=== PATIENT | male | born 1990 | race Caucasian/White ===

== ENCOUNTER 2016-12-08 16:01 | Emergency (ER) | payer MEDICAID ==
[~2016-12-08] VITALS: Ht 175.3 cm; Wt 93.0 kg
[2016-12-08 18:00] LABS: Basophils # (auto) 0 uL; Basophils % (auto) 0.3 % (0.0-2.0); Eosinophils # (auto) 0.2 uL; Eosinophils % (auto) 2.6 % (0.0-7.0); Hemoglobin 16.8 g/dL (13.5-17.5); Lymphocytes # (auto) 2.8 uL; Lymphocytes % (auto) 39.3 % (10.0-50.0); Mean Corpuscular Hgb Conc. 34.4 g/dL (32.0-36.0); Mean Corpuscular Volume 90.2 fL (80.0-100.0); Mean Platelet Volume 8.2 fL (7.4-10.4); Monocytes # (auto) 0.6 uL; Monocytes % (auto) 8.5 % (0.0-12.0); Neutrophils # (auto) 3.5 uL; Neutrophils % (auto) 49.3 % (37.0-80.0); Platelet Count (auto) 287 10^3/uL (140-450); Red Cell Distribution Width 12.5 % (11.6-16.0)
[2016-12-08 18:17] LABS: Albumin 4.4 g/dL (3.4-5.0); BUN/Creatinine Ratio 16.5; Calcium 9.1 mg/dL (8.5-10.1); Potassium 4.1 mmol/L (3.5-5.1)
[2016-12-08 18:20] LABS: Bilirubin, Total 0.4 mg/dL (0.2-1.0); Total Protein 7.7 g/dL (6.4-8.2)
[2016-12-08 20:46] VITALS: BP 146/92
[2016-12-08 20:53] LABS: Magnesium 2.4 mg/dL (1.6-2.6)
[2016-12-08 21:09] LABS: Partial Thromboplastin Time 30.2 sec (22.64-33.71); Prothrombin Time 10.3 sec (9.37-12.3)
[2016-12-08] MEDS ORDERED: cefTRIAXone SOD 500 MG VL ONE (21:41)
== END 2016-12-08 22:07 | disposition home or self-care (01) ==
LOC: ER 16:18
DX: K29.70 Gastritis, unspecified, without bleeding (principal); K92.1 Melena; Z88.6 Allergy status to analgesic agent; Z88.1 Allergy status to other antibiotic agents
CPT/HCPCS: 36415; 71010; 74176; 80053; 82150; 83690; 83735; 85025; 85610; 85730; 94761; J0696